=== PATIENT | female | born 1950 | race Caucasian/White ===

== ENCOUNTER → 2017-06-03 | Outpatient (CLI) | payer OTHER ==
[~2017-06-03] MED LIST: ASCO10004 PO; ASPI-496 PO; BLACK COHOSH PO; BORAGE OIL PO; CHLO5CAP2 PO; DICY10CA3 PO; MULT-516 PO; TURMERIC PO
[2017-06-03 14:41] LABS: CULTURE INDICATED? YES; MICROSCOPIC AUTO
== END | disposition home or self-care (01) ==
LOC: STAR 13:43
PROVIDERS: ATTEND Obstetrics & Gynecology
DX: Z01.818 Encounter for other preprocedural examination (principal); N84.0 Polyp of corpus uteri; N95.0 Postmenopausal bleeding
CPT/HCPCS: 81001; 87086; 93005

== ENCOUNTER → 2018-04-18 | Outpatient (CLI) | payer MEDICARE | END | disposition home or self-care (01) | LOC: CFH 12:10 | PROVIDERS: ATTEND Family Medicine | DX: Z13.820 Encounter for screening for osteoporosis (principal); M85.88 Other specified disorders of bone density and structure, other site | CPT/HCPCS: 77080 ==